=== PATIENT | female | born 1950 | race Hispanic/Latino ===

== ENCOUNTER → 2018-11-10 | Outpatient (CLI) | payer OTHER, MEDICARE | END | disposition home or self-care (01) | LOC: RAH 07:30 | PROVIDERS: ATTEND Family Medicine | DX: S16.1XXD Strain of muscle, fascia and tendon at neck level, subsequent encounter (principal); M47.812 Spondylosis without myelopathy or radiculopathy, cervical region; M48.02 Spinal stenosis, cervical region; X58.XXXD Exposure to other specified factors, subsequent encounter | CPT/HCPCS: 72141 ==

== ENCOUNTER → 2024-10-20 | Outpatient (CLI) | payer OTHER, MEDICAID ==
--- NOTE | 2024-10-21 07:51 | HMCIMG ---
EXAM: MR Cervical Spine Without Intravenous Contrast. CLINICAL HISTORY: Age-related osteoporosis without current pathological fracture. TECHNIQUE: Magnetic resonance images of the cervical spine in multiple planes. CONTRAST: None. COMPARISON: MRI dated 11/10/2018. FINDINGS: The imaged posterior fossa is unremarkable. The craniocervical junction is intact. No acute fracture. Normal lordotic curvature. Multilevel spondylosis is evident by marginal osteophytes and facet joint arthropathy. Multilevel disc desiccation noted. Mild degenerative disc height reduction at the C5-C6 and C6-C7 levels. Normal vertebral body and remaining disc heights. Normal marrow signal of the vertebrae. No abnormal signal involves the cord. No extra-axial masses. The surrounding soft tissues are unremarkable. Level by level disease is present as follows: C1-C2: Mild osteoarthritis. C2-C3: No disc bulge or herniation. No neural foraminal, lateral recess or spinal canal stenosis. C3-C4: 2 mm left predominant disc osteophyte complex bulge causing mild indentation on the anterior thecal sac and mild left foraminal narrowing. No lateral recess stenosis. C4-C5: 3 mm disc osteophyte complex bulge and ligamentum flavum thickening causing mild canal narrowing and compression of the cord. No neural foraminal or lateral recess stenosis. C5-C6: 3 mm disc osteophyte complex bulge and ligamentum flavum thickening causing moderate canal narrowing with compression of the cord, moderate right foraminal narrowing, and severe left foraminal narrowing. No lateral recess stenosis. C6-C7: 3 mm disc osteophyte complex bulge and ligamentum flavum thickening causing moderate canal narrowing with compression of the cord and severe left foraminal narrowing. No lateral recess stenosis. C7-T1: No disc bulge or herniation. No neural foraminal, lateral recess, or spinal canal stenosis. IMPRESSION: Moderate multilevel spondylosis. Mild interval worsening noted. 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 Mild interval worsening noted. Mild indentation on the anterior thecal sac and mild left foraminal narrowing at the C3-C4 level. Left foraminal narrowing is a new finding. Mild canal narrowing and compression of the cord at the C4-C5 level. Mild interval worsening of the canal narrowing. Moderate canal narrowing with compression of the cord, moderate right foraminal narrowing, and severe left foraminal narrowing at the C5-C6 level. Stable. Moderate canal narrowing with compression of the cord and severe left foraminal narrowing at the C6-C7 level. Mild interval worsening of the canal narrowing. /Grace
== END | disposition home or self-care (01) ==
LOC: RAH 09:12
PROVIDERS: ATTEND Family Medicine
DX: M50.321 Other cervical disc degeneration at C4-C5 level (principal); M50.322 Other cervical disc degeneration at C5-C6 level; M50.323 Other cervical disc degeneration at C6-C7 level; M50.31 Other cervical disc degeneration, high cervical region; M47.812 Spondylosis without myelopathy or radiculopathy, cervical region; M43.8X2 Other specified deforming dorsopathies, cervical region; M81.0 Age-related osteoporosis without current pathological fracture; M48.02 Spinal stenosis, cervical region; M25.78 Osteophyte, vertebrae
CPT/HCPCS: 72141